=== PATIENT | male | born 1955 | race Caucasian/White ===

== ENCOUNTER → 2023-10-26 03:30 | Outpatient (CLI) | payer OTHER, SELFPAY ==
--- NOTE | 2023-10-26 10:28 | DI.RAD_ITS ---
Exam(s) XR FOOT LT COMPLETE EXAM: XR FOOT LT COMPLETE CLINICAL HISTORY: Left foot pain,m79.672. TECHNIQUE: 2D digital imaging was performed. Three views. COMPARISON: No exams were available for comparison FINDINGS: BONES: No acute fracture is present. No bony destructive lesion is seen. Small heel spurs. JOINTS: No dislocation present. Mild narrowing of for the 1st MTP joint. Spurring seen laterally. adjacent dorsal calcification. Moderate first metatarsal varus and hallux valgus. Degenerative jacobson ges also seen at the 1st metatarsal sesamoids. Hammertoe deformities. SOFT TISSUE: Vascular calcifications. IMPRESSION: Hallux valgus. Hammertoe deformities. DATA REPOSITORY: RADIATION DOSE DELIVERED:
== END ==
PROVIDERS: Visit Provider Podiatrist
DX: M20.12 Hallux valgus (acquired), left foot; M20.42 Other hammer toe(s) (acquired), left foot
CPT/HCPCS: 73630

== ENCOUNTER → 2023-12-19 12:56 | Outpatient (BNVA) | payer MEDICARE, OTHER, SELFPAY | PROVIDERS: Visit Provider Podiatrist | DX: M20.22 Hallux rigidus, left foot; M21.612 Bunion of left foot; M20.42 Other hammer toe(s) (acquired), left foot; G57.92 Unspecified mononeuropathy of left lower limb; L84 Corns and callosities; R09.89 Other specified symptoms and signs involving the circulatory and respiratory systems; M79.675 Pain in left toe(s); M79.672 Pain in left foot; R20.2 Paresthesia of skin; L85.1 Acquired keratosis [keratoderma] palmaris et plantaris | CPT/HCPCS: 11055; 20600; J0702; J1100 ==

== ENCOUNTER → 2024-01-23 13:48 | Outpatient (BNVA) | payer MEDICARE, OTHER, SELFPAY | PROVIDERS: Visit Provider Podiatrist | DX: M20.22 Hallux rigidus, left foot (principal); M21.612 Bunion of left foot; M20.42 Other hammer toe(s) (acquired), left foot; G57.92 Unspecified mononeuropathy of left lower limb; L84 Corns and callosities; L85.1 Acquired keratosis [keratoderma] palmaris et plantaris; M79.672 Pain in left foot; Z79.02 Long term (current) use of antithrombotics/antiplatelets; Z79.811 Long term (current) use of aromatase inhibitors | CPT/HCPCS: 11055; 20600; 99214; J0702; J1100 ==

== ENCOUNTER → 2024-04-02 10:28 | Outpatient (BNVA) | payer MEDICARE, OTHER, SELFPAY | PROVIDERS: PCP Student in an Organized Health Care Education/Training Program; Referring Provider Student in an Organized Health Care Education/Training Program; Visit Provider Podiatrist | DX: M20.22 Hallux rigidus, left foot (principal); M21.612 Bunion of left foot; M20.42 Other hammer toe(s) (acquired), left foot; G57.92 Unspecified mononeuropathy of left lower limb; L84 Corns and callosities; M79.672 Pain in left foot; L85.8 Other specified epidermal thickening; Z82.3 Family history of stroke | CPT/HCPCS: 11055; 20600; J0702; J1100 ==

== ENCOUNTER 2024-05-08 10:20 | Day surgery (SDC) | payer MEDICARE, SELFPAY ==
[2024-05-08] VITALS (16 sets, daily range): BP systolic 106–132; BP diastolic 62–85; PULSE 42–57; RESP 11–20; TEMP 36.2–36.8; O2SAT 97–100; BMI 32.6
[2024-05-08] MEDS: Lactated Ringers 1,000 ML 30 ML IV (10:52)
--- NOTE | 2024-05-08 11:03 | ANES.PREOP_ITS ---
General Info Date of Service Date Performed: 05/08/24 Height: 5 ft 8 in Weight: 97.5 kg Body Mass Index (BMI): 32.6 Surgical Procedure: Operation Date: 05/08/24 12:10 Proposed Procedure Side Surgeon p Arthroplasty Left Evi Michaelle, GEOVANI s Cheilectomy VS Arthrodesis Left Evi Braswell DPM Actual Procedure Side Surgeon p Arthroplasty Left Evi Braswell DPM s Cheilectomy VS Arthrodesis Left Evi Braswell DPM Meds Allergies and Home Medications Allergies Allergy/AdvReac Type Severity Reaction Status Date / Time bee venom protein (honey bee) Allergy Severe Anaphylaxis Verified 05/08/24 10:47 grass pollen Allergy Unknown Other (See Verified 05/08/24 10:47 Comment) mold Allergy Unknown Unknown Verified 05/08/24 10:47 grapefruit Allergy Severe throat Uncoded 05/08/24 10:47 swelling Home Medication ?Medication ?Instructions ?Recorded atorvastatin 20 mg tablet 20 mg PO QHS 10/26/23 lisinopril 5 mg tablet 5 mg PO DAILY #90 tabs 03/13/24 omeprazole 20 mg capsule,delayed 20 mg PO DAILY #90 caps 03/13/24 release oxycodone-acetaminophen 7.5 mg-325 1 tab PO Q8H 3 days #9 tabs 05/03/24 mg tablet (Percocet) Current Visit Medications: Current Medications Generic Name Dose Route Start Last Admin Trade Name Freq PRN Reason Stop Dose Admin Ringer's Solution 1,000 mls @ 30 mls/hr 05/08/24 06:00 05/08/24 10:52 IV 05/08/24 23:59 30 mls/hr INFUSION LEONEL Administration Cefazolin Sodium/Dextrose 2 gm in 50 mls @ 100 mls/hr 05/08/24 06:00 Ancef Duplex IVPB 05/08/24 23:59 PREOP LEONEL IV Miscellaneous Supplies 1 each 05/08/24 06:00 Iv Access IV 05/08/24 23:59 DIRECTED LEONEL Sodium Chloride 0 ml 05/08/24 06:00 Normal Saline Flush 10 Ml Syr IV 05/08/24 23:59 PRN PRN Sodium Chloride 0 ml 05/08/24 06:00 Normal Saline 10 Ml Vial IJ 05/08/24 16:00 DIRECTED PRN Sterile Water 0 ml 05/08/24 06:00 Water,Injection,Sterile 10 Ml Vial IJ 05/08/24 23:59 DIRECTED PRN PFSH Active Problems Active Problems: Problem Status Onset Code Post-op pain Acute G89.18 Malabsorption Acute K90.9 Long-term current use of proton pump inhibitor therapy Acute Z79.899 Esophagitis determined by endoscopy Acute K20.90 Outbursts of anger Acute R45.4 Nocturia more than twice per night Acute R35.1 Low vitamin B12 level Acute R79.89 Food allergy Acute Z91.018 Family history of prostate cancer in father Acute Z80.42 Family history of coronary artery disease Acute Z82.49 Bee sting allergy Acute Z91.030 GERD (gastroesophageal reflux disease) Chronic K21.9 Hypertension Chronic I10 Bunion, left foot Acute M21.612 Medical History Medical History Class 1 obesity Losing weight, summer 2023.. Marital stress History of COVID-19 in 2019 Difficulty controlling anger Corns and callosities Neuritis of left foot Hyperlipidemia Hammertoe of left foot Hallux rigidus, left foot Surgical History Surgical History (Updated 05/08/24 @ 10:49 by Amrita Muniz, RN) History of hip surgery Hx of shoulder surgery Per pt note, b/l shoulder surgeries.HE Hx of knee surgery Per pt note: Knees L/R 1981/1991?HE H/O laminectomy S/P laparoscopic hernia repair History of lumbar surgery x 2 (last being in 2022) Tobacco Smoking/Tobacco Use Status: Never Second hand exposure: Yes Alcohol Alcohol Intake: current Alcohol intake frequency: a few times a week Substance Use Substance use: Never Substance use type: does not use Vital Signs and Lab Results Vital Signs Most Recent Vital Signs in EMR: Most Recent Vital Signs Temp Pulse Resp BP Pulse Ox 36.8 C 57 L 17 132/85 98 05/08/24 10:43 05/08/24 10:43 05/08/24 10:43 05/08/24 10:43 05/08/24 10:43 Lab Results Blood Type / Crossmatch: 2 No Data to Display Complete Blood Count: 2 No Data to Display Complete Metabolic Panel: 2 No Data to Display Liver Function Panel: 2 No Data to Display Coagulation Panel: 2 No Data to Display Cardiac Panel: 2 No Data to Display Arterial Blood Gas: 2 No Data to Display Venous Blood Gas: 2 No Data to Display Pancreas Panel: 2 No Data to Display Thyroid Panel: 2 No Data to Display Infectious Disease: 2 No Data to Display Blood Cultures: 2 No Data to Display Toxicology Panel: 2 No Data to Display Anesthesia Assessment and Plan Anesthesia History Personal History: No History of Anesthesia Complications Family History: No Family History of Anesthesia Complications Exercise Tolerance Exercise Tolerance: Metabolic Equivalents>4 Pertinent Negatives Pertinent Negatives: No Major Cardiovascular Symptoms or Complaints, No Major Pulmonary Symptoms or Complaints and No History of CVA/TIA Cardiac & Pulmonary Exam Cardiac Exam: Normal S1/S2 Heart Sounds Pulmonary Exam: Clear Bilateral Breath Sounds Implantable Cardiac Device Does patient have a Pacemaker or an ICD?: No Airway Exam Known Difficult Airway: No Mallampati Class: 2 Mouth Opening: Normal (> 3cm) Thyromental Distance: Greater than 3 cm Neck Range of Motion: Full ROM Neck Circumference: Normal Teeth Condition: Normal Dentition Tooth Numberin 1. Indicates chipped teeth ASA Classification ASA Score: ASA 2 Emergency Case?: No NPO Status NPO Status: NPO Clears >2 hours, Solids >8 hours Anesthesia Plan Resuscitation Status: Full Code Anesthesia Technique: General Anesthesia Airway Planned: Endotracheal Tube Monitors Used: Standard Monitors
[2024-05-08] MEDS: ceFAZolin 2 GM/50 ML BAG IVPB (12:35)
[2024-05-08] MEDS: Lidocaine 1% Pres-Free 30 ML VIAL (12:55)
--- NOTE | 2024-05-08 14:34 | DI.RAD_ITS ---
Exam(s) XR FOOT LT LIMITED EXAM: XR FOOT LT LIMITED CLINICAL HISTORY: Hallux rigidus, Bunion, hammertoe, left foot. TECHNIQUE: 2D and realtime digital imaging was performed. COMPARISON: CR XR FOOT LT COMPLETE from 10/26/2023 FINDINGS: Please see procedure note for details. Fluoro time: 44seconds RADIATION DOSE DELIVERED: fran Garcia=0.34 mGy
[2024-05-08] MEDS: Bupivacaine 0.25% Pres-Free 30 ML VIAL (14:55)
--- NOTE | 2024-05-08 15:07 | W.PM.DSUDISC ---
Date of service: 05/08/24 Time of Service: 12:00 Discharge Plan Disposition Patient Disposition: Home Condition: Stable Discharge Details Attending Provider: Evi Braswell Primary Care Provider: Melvi Butler Home Meds and New Rx's Prescriptions: No Action atorvastatin 20 mg tablet 20 mg PO QHS Rx Instructions: dose unverified omeprazole 20 mg capsule,delayed release(DR/EC) 20 mg PO DAILY Qty: 90 1RF Rx Instructions: Continue 2' esophagitis. Pt will call for refills when needed. lisinopril 5 mg tablet 5 mg PO DAILY Qty: 90 3RF Rx Instructions: Hypertension; Kidney protection. PLEASE FILL oxycodone-acetaminophen [Percocet] 7.5-325 mg tablet 1 tab PO Q8H MDD 3 tabs per day 3 Days Qty: 9 0RF Patient Comments: picked up for surgery that was supposed to be 05/07 Discharge Instructions Additional Instructions: Please keep your dressings clean, dry and intact. Do not let the dressings get wet. Rest, ice and elevate. Keep your cam boot on. Patient to remain nonweightbearing to the left lower extremity. You may loosen the outer brown layer of dressing if you have pain to the left foot. Follow-up on Stand Alone Forms: Anesthesia Discharge Inst., Cristina Ren (DSU), Podiatry Instructions-DSU Equipment/Supplies: Walker Activity:: Elevate Remove Dressings/Wound Care:: Do Not Remove Shower/Bathe:: Cover Diet:: Normal Diet Discharge Orders Discharge Orders: Discharge Order (Routine); Ordered 05/08/24 Ordered By: Evi Braswell DS: Diagnosis Discharge Diagnosis (1) Bunion, left foot: Status: Acute (2) Hallux rigidus, left foot:
--- NOTE | 2024-05-08 15:09 | ROE_ITS ---
Date of service: 05/08/24 Time of Service: 12:00 Operative Note Operative Note DATE OF PROCEDURE: 05/08/24 PRE-OP DIAGNOSIS: Hallux rigidus left foot POST-OP DIAGNOSIS: same PROCEDURE: First metatarsophalangeal joint arthrodesis, left foot SURGEON: Evi Braswell ANESTHESIA TYPE: Local By Surgeon (20 mL 1% lidocaine plain preoperatively.) Refer to Anesthesia Record ESTIMATED BLOOD LOSS: 5 PATHOLOGY: none sent TOURNIQUET TIME: 90 COMPLICATIONS: None Patient was transported to: same day Patient's condition: stable Implants: DynaFORCE MTP plate 18 mm 0 degree dorsiflexion, left HIMAX 18 x 18 x 18 mm screw MotoBand nonlocking screw 2.0 mm x 22 mm MotoBAND polyaxial locking screws 3.4 mm x 16 mm- x3 Indications: Is a 69-year-old male patient with pain to the left first metatarsophalangeal joint as well as a large bunion deformity and asking for appointments. Patient has exhausted all conservative care at this time. I discussed the procedure in detail with the patient. I discussed all the risks, benefits and possible complications of the procedure including but not limited to pain, nerve pain, CRPS, bleeding, delayed wound, nonhealing, incisional problems, infection, infection to bone, delayed union, nonunion, malfunctioning however hardware failure, hardware irritation or allergy, need for further surgery or amputation, DVT, PE, stroke or SD, with anesthesia. No guarantees or warranties were made or implied. Consent form signed reviewed in chart. Medical clearance in chart. Imaging reviewed. No contraindications noted to the procedure. Findings: Large intra-articular osteophytes x 2. Cartilage loss. Procedure Description: The patient was brought to the operating room and placed on the operating table in the supine position. Following IV sedation local anesthesia was obtained utilizing 10mL % lidocaine plain. An ankle tourniquet was applied to the patient's left ankle. The foot was then scrubbed, prepped, and draped in the usual aseptic manner. The patient's left foot was then exsanguinated using and Esmarch and the tourniquet was then inflated. Attention was then directed to the dorsal aspect of the first metatarsal head of the left foot where an approximately 5cm linear longitudinal incision was made medial and parallel to the tendon of the extensor hallucis longus. The incision was deepened through the subcutaneous tissues using sharp and blunt dissection. Care was taken to identify and retract all vital neural and vascular structures. All bleeders were ligated and cauterized as necessary. Next, a linear longitudinal incision was made and a capsulotomy was performed over the dorsal aspect of the first metatarsal-phalangeal joint. The periosteal and capsular structures were then carefully dissected free and reflected me dially and laterally thus exposing the head of the first metatarsal. Utilizing a sagittal bone saw, the dorsal and medial prominence of the metatarsal head was resected and passed from the operative field. Utilizing a ronguer, the dosrsal, medial and lateral prominences were removed from the base of the proximal phalanx. Next,, a guide wire was placed centrally in the head of the 1st metatarsal. A size 18 reamer was used to reshape the metatarsal head and remove all cartilage. The guide wire was removed. The same was done to the base of the proximal phalanx with a guide wire placed centrally in the base. A size 18 reamer was used to reshape the base of the proximal phalanx and remove all cartilage. The guide wire was removed site was then flushed with copious amounts of sterile saline. Either side of the joint greater than fenestrated the joint surfaces. Next, the metatarsal head and base of the proximal phalanx were compressed together and held in place with a k-wire for temporary fixation. Intraoperative fluoroscopy was used to confirm fixation. Next, a 0 degree dorsiflexion, left Plate was placed over 1st MTPJ. An olive wire was placed in the distal medial hole to provide temporary fixation, followed by a 2nd olive wire placed in the lateral proximal hole. A hole was drilled through the first metatarsal as well as the proximal phalanx for a compression staple. The compression staple was then placed. The ankle tourniquet was then deflated since was 90 minutes. A locking screw was then placed distally in the proximal phalanx. Next, a screw was then placed in the metatarsal eccentrically for compression after removal of the proximal hallux wire. Next, a locking screw was placed distally in the proximal phalanx upon removal of the knowledge wire. Next, a K wire was removed. Next intraoperative images were obtained for positioning this was noted to be excellent. Excellent compression was noted across the metatarsophalangeal joint. The incision was flushed with copious amounts of normal saline. The periosteal and capsular structures were reaproximated using 3-0 Vicryl. Subcutaneous tissue was then closed with 4-0 Vicryl. Skin edges were reapproximated and coapted using 4-0 nylon. A postoperative injection consisting of 0.5% Marcaine plain by 20 mL were infiltrated across the incision site. Upon completion of the procedure the incision was dressed with Xeroform gauze, 4x4s, Kerlix, and an Rex wrap. The patient tolerated the procedure and anesthesia well and was transferred to same-day with all vital signs stable and vascular status intact to the left foot. Following a period of postoperative monitoring the patient will be discharged to home and given written instructions and prescriptions patient is to follow-up in the office on . He will be nonweightbearing to the left lower extremity.
--- NOTE | 2024-05-08 15:55 | W.ANESPOSTOP ---
Postoperative Evaluation Date, Time and Location Date Performed: 05/08/24 Time Performed: 13:36 Patient Location: PACU Vital Signs Most Recent Imported Vital Signs: Most Recent Vital Signs Temp Pulse Resp BP Pulse Ox 36.5 C 45 L 14 114/81 99 05/08/24 15:33 05/08/24 15:36 05/08/24 15:36 05/08/24 15:36 05/08/24 15:36 Pain Score Most Recent Pain Score: Most Recent Pain Score Pain Level 0 05/08/24 15:33 Assessment Mental Status: Arousable with meaningful communication Airway and Respiratory Function: Patent airway with normal (patient baseline) respiratory exam Cardiovascular Function: Hemodynamically Stable Hydration Status: Adequately Hydrated Nausea & Vomiting: No Nausea or Vomiting Pain: Pt. Denies Any Pain Peripheral Nerve Block: Patient did not receive a nerve block
--- NOTE | 2024-05-08 17:57 | IN_ITS ---
PT Notes Physical Therapy Day Surgery Initial Evaluation Date: 05/08/2024 Referring Doctor: Dr Braswell PT Orders: PT CONSULT: Status post surgery assessment for assistive device Precautions: Nonweightbearing left lower extremity with postop shoe for protection Patient Profile/Admitting Diagnosis: Patient is a 69-year-old man presenting status post elective left first MTP arthrodesis on 05/08/2024 under general anesthesia postop uncomplicated. Patient made nonweightbearing left lower extremity. PMHX: Esophagitis nocturia, low vitamin B12, GERD, hypertension, malabsorption. Social History/Home Situation: Patient resides in 1 level home with 1 step to enter through garage. Patient reports walk-in shower with bench. Patient reports she is independent ambulation ADLs, meal preparation, driving, shopping, finances. able to provide assistance as needed Equipment Owned/DME: Standard walker Subjective: Patient reports he practiced nonweightbearing with standard walker at home prior to surgery in preparation for NWB after. Objective: General Observation: Semireclined male on stretcher with sitting at bedside patient agreeable to participate Mental Status: Alert and oriented x 3 Pain: Patient denied pain left foot ROM: Right Upper Extremity: Within normal limits Left Upper Extremity: Within functional limits Right Lower Extremity: Within normal limits Left Lower Extremity: Hip and knee within normal limits ankle not tested Strength: Right Upper Extremity: 5/5 Left Upper Extremity: Shoulder 3+/5 elbow wrist hand within normal limits Right Lower Extremity: 5/5 Left Lower Extremity: Hip and knee within normal limits ankle not tested Sensation: Intact Bed Mobility/Transfers: Supine to sit independent Sit to stand supervision Stand to sit supervision Bed to chair contact-guard assist with standard walker Gait: Patient ambulated 25 feet maintaining nonweightbearing left lower extremity with use of standard walker and contact-guard Stairs: 1 step with standard walker contact-guard assist hopping up step backwards, hopping forward down step Balance: Static Sitting: Normal Dynamic Sitting: Good Static Standing: Fair Dynamic Standing: Fair minus Special Tests: [] Mobility Limitations Standardized Measure [] [facility] 6 clicks Basic Mobility Inpatient Short Form: [] Raw Score: 19 CMS Score: 41.77% Informed Consent/Education: Patient instructed in purpose of PT consult. Patient and instructed in ambulation and stair training while maintaining nonweightbearing status left lower extremity Assessment: Patient presents with clinical signs and symptoms consistent with current/admitting diagnoses that have resulted to mobility limitations, gait instability, generalized weakness, and impairment of motor control as demonstrated by the following impairment level findings: 1. Decreased strength to left lower extremity major muscle groups 2. Impaired standing balance 3. Limitation of joint range of motion in left foot 4. Impaired weightbearing status/nonweightbearing left foot Impairments are contributing to the following functional limitations: 1. Inability to safely ambulate without assistive device 2. Increase completion time for mobility ADL performance 3. Increased fall risk 4. Difficulty negotiating stairs without physical assistance and assistive device Patient is assessed as a moderate complexity based on the following: History: 69-year-old male with impairment level findings, functional limitations, and past medical history as indicated above Examination: Demonstrable impairment in strength, balance, and mobility level with underlying impairments and functional limitations as documented above Presentation: Evolving Decision Making: Moderate Goals: N/A. Plan of Care/Treatment Plan: N/A. DISCHARGE RECOMMENDATIONS: Home maintaining nonweightbearing until follow-up with Dr. Braswell TREATMENT CODE/TIME: 49144 x 20 minutes for 1 unit, 28375 x 15 minutes for 1 unit/[id number] Thank you for the opportunity to participate in the care of this patient. Elvia Fonseca PT Please sign an return this page within 30 days if you agree with the above POC. Thank you! Physician Signature Date [facility]
== END 2024-05-08 17:46 | disposition home or self-care (01) ==
LOC: SUR 10:23
PROVIDERS: PCP Student in an Organized Health Care Education/Training Program; Visit Provider Podiatrist
PROC: (CPT 28289; 2024-05-08 12:00)
PROC: (CPT 28750; 2024-05-08 12:00)
DX: M21.612 Bunion of left foot (principal); M20.22 Hallux rigidus, left foot; I10 Essential (primary) hypertension; K21.9 Gastro-esophageal reflux disease without esophagitis; E66.811 Obesity, class 1; E78.5 Hyperlipidemia, unspecified
CPT/HCPCS: 28750; C1889; 00123; 76000; 97162; 97530; 73620; J0131; J0665; J0690; J1885; J2250; J2704; J3010

== ENCOUNTER → 2024-05-10 13:06 | Outpatient (BNVA) | payer MEDICARE, SELFPAY | PROVIDERS: PCP Student in an Organized Health Care Education/Training Program; Visit Provider Podiatrist | DX: Z98.890 Other specified postprocedural states (principal); M21.612 Bunion of left foot; M20.22 Hallux rigidus, left foot; M20.42 Other hammer toe(s) (acquired), left foot; G57.92 Unspecified mononeuropathy of left lower limb; L84 Corns and callosities | CPT/HCPCS: 99024 ==

== ENCOUNTER 2024-05-17 03:00 | Outpatient (CLI) | payer MEDICARE, SELFPAY ==
--- NOTE | 2024-05-17 07:15 | DI.RAD_ITS ---
Exam(s) XR FOOT LT COMPLETE EXAM: XR FOOT LT COMPLETE CLINICAL HISTORY: post op,LT FOOT BUNION,m21.612. TECHNIQUE: 2D digital imaging was performed. Three images were obtained. AP, lateral and oblique vi ews were obtained. COMPARISON: CR XR FOOT LT COMPLETE from 10/26/2023 CR XR FOOT LT LIMITED from 05/08/2024 FINDINGS: BONES: There are stable post operative changes present. The patient is status post 1st MTP joint fus ion. No new fracture or dislocation. There is a small plantar calcaneal spur. There is an enthesoph yte at the posterior calcaneus. JOINTS: The joint spaces are well maintained. SOFT TISSUE: Vascular calcifications are present. IMPRESSION: Stable postoperative changes. DATA REPOSITORY: RADIATION DOSE DELIVERED:
== END 2024-05-17 03:20 ==
LOC: DI 03:00
PROVIDERS: PCP Student in an Organized Health Care Education/Training Program; Visit Provider Podiatrist
DX: M21.612 Bunion of left foot (principal); Z98.890 Other specified postprocedural states
CPT/HCPCS: 73630

== ENCOUNTER 2024-05-31 02:30 | Outpatient (CLI) | payer MEDICARE, SELFPAY ==
--- NOTE | 2024-05-31 07:00 | DI.RAD_ITS ---
Exam(s) XR FOOT LT COMPLETE EXAM: XR FOOT LT COMPLETE CLINICAL HISTORY: Postop PAIN,M21.612,G89.18,LT FOOT BUNION. TECHNIQUE: 2D digital imaging was performed. Three views. COMPARISON: CR XR FOOT LT COMPLETE from 05/17/2024 FINDINGS: BONES: Status post fusion at the 1st MTP joint with hardware in place. No change in alignment. No v isible abnormal bony lucencies. No acute fracture is present. No bony destructive lesion is seen. Small heel spurs again noted. JOINTS: No dislocation present. SOFT TISSUE: Mild swelling around the 1st MTP joint. Vascular calcifications. IMPRESSION: Stable postoperative appearance. DATA REPOSITORY: RADIATION DOSE DELIVERED:
== END 2024-05-31 02:50 ==
LOC: DI 02:30
PROVIDERS: PCP Student in an Organized Health Care Education/Training Program; Visit Provider Podiatrist
DX: M21.612 Bunion of left foot (principal); G89.18 Other acute postprocedural pain
CPT/HCPCS: 73630

== ENCOUNTER 2024-06-14 02:17 | Outpatient (CLI) | payer MEDICARE, SELFPAY ==
--- NOTE | 2024-06-14 08:38 | DI.RAD_ITS ---
Exam(s) XR FOOT LT COMPLETE EXAM: XR FOOT LT COMPLETE CLINICAL HISTORY: post-op pain,G89.18. TECHNIQUE: 2D digital imaging was performed. Three images were obtained. AP, lateral and oblique vi ews were obtained. COMPARISON: CR XR FOOT LT COMPLETE from 05/31/2024 FINDINGS: BONES: There are stable post operative changes of a 1st MTP joint fusion present. No new fracture or dislocation. The orthopedic hardware is stable. There is an enthesophyte at the posterior calcaneus . There is a small plantar calcaneal spur. JOINTS: The joint spaces are well maintained. The joint spaces are well maintained. SOFT TISSUE: Atherosclerotic calcification is present. There is soft tissue swelling of the forefoot . No soft tissue gas is present. IMPRESSION: Stable postoperative changes. DATA REPOSITORY: RADIATION DOSE DELIVERED:
== END 2024-06-14 02:37 ==
LOC: DI 02:17
PROVIDERS: PCP Student in an Organized Health Care Education/Training Program; Visit Provider Podiatrist
DX: G89.18 Other acute postprocedural pain (principal)
CPT/HCPCS: 73630

== ENCOUNTER 2024-06-28 01:28 | Outpatient (CLI) | payer MEDICARE, SELFPAY ==
--- NOTE | 2024-06-28 10:00 | DI.RAD_ITS ---
Exam(s) XR FOOT LT COMPLETE EXAM: XR FOOT LT COMPLETE CLINICAL HISTORY: post op M21.612 Bunion of LT foot. TECHNIQUE: 2D digital imaging was performed of the left foot. Three images were obtained. AP, obli que and lateral views were obtained. COMPARISON: CR XR FOOT LT COMPLETE from 06/14/2024 FINDINGS: BONES: No acute fracture is present. No bony destructive lesion is seen. There is an enthesophyte at the posterior calcaneus. There is a small plantar calcaneal spur. JOINTS: No dislocation present. There again seen postsurgical changes of a fusion of the 1st MTP join t. The joint space is unchanged. SOFT TISSUE: Normal. IMPRESSION: Stable postsurgical changes of a 1st MTP joint fusion. DATA REPOSITORY: RADIATION DOSE DELIVERED:
== END 2024-06-28 01:48 ==
LOC: DI 01:29
PROVIDERS: PCP Student in an Organized Health Care Education/Training Program; Visit Provider Podiatrist
DX: M21.612 Bunion of left foot (principal)
CPT/HCPCS: 73630

== ENCOUNTER 2024-07-19 12:00 | Outpatient (CLI) | payer MEDICARE, SELFPAY ==
[2024-07-19 11:31] LABS: HCT 45.3 % (40.0-50.0); HGB 15.2 g/dL (13.5-17.5); MCH 31.1 pg (27.0-33.0); MCHC 33.6 % (32.0-36.0); MCV 93 fL (80-95); MPV 10.7 fL (8.0-11.0); Platelet Count 242 10^3/uL (130-400); RBC 4.89 10^6/uL (4.36-5.78); RDW 12.5 % (11.8-14.1); RDW-SD 42.9 fL; WBC 5.03 10^3/uL (4.4-10.8)
--- OUTSIDE RECORDS SUMMARY | 2024-07-19 12:02 | XMS_ITS | Clinical Summary ---
Author Organization [facility] Address [facility] [place] [address] Care Team Providers Care Quality Control Scientist Name Role Phone Unavailable Primary Care Provider Unavailabl e Social History Tobacco Use Types Packs/Day Years Used Date Smoking Tobacco: Never Assessed Sex and Gender Information Value Date Recorded Sex Assigned at Not on file Gender Identity Not on file Sexual Orientation Not on file Plan of Treatment Upcoming Encounters Date Type Department Care Team (Late st Contact Info) Description 01/24/2025 2:30 PM EDT Office Visit Dermatology at [facility] [address] [place] [address] Donna Taylor MD [facility] [address] Health Maintenance Due Date Last Done Comments CT Colonography 1954 Colonoscopy 1954 Colorectal Cancer Screening 1954 FIT DNA 1954 FIT 1954 Sigmoidoscopy (10 year) with FIT yearly 1954 Sigmoidoscopy 1954 Hepatitis C Screening 1972 Lipid Screening 1972 Tetanus/Diphtheria/Pertussis Vaccines (1 - Tdap) 04/12 Pneumoccocal Vaccine: 65+ (1 of 1 - PCV) 2004 Zoster vaccine (1 of 2) 2004 Advance Directive 2009 Covid-19 Vaccine ( - season) 2024 Influenza (Flu) vaccine (1 o f 1 - Influenza standard series) 03/11/2024
[2024-07-19 12:22] LABS: ALT 24 U/L (16-63); AST 19 U/L (15-37); Albumin 4.1 g/dL (3.4-5.0); Alkaline Phosphatase 84 U/L (46-116); Anion Gap 4.9 mmol/L (3-11); BUN 17 mg/dL (7-18); Bilirubin, Total 0.78 mg/dL (0.2-1.0); CO2 31.1 mmol/L (21.0-32.0); CREATININE 1.1 mg/dL (0.70-1.30); Calcium 9.7 mg/dL (8.5-10.1); Calculated LDL 88 mg/dL (<100); Chloride 107 mmol/L (98-107); Cholesterol 173 mg/dL (<200); Estimated GFR 72.22 (mL/min/1.73m2); Glucose 94 mg/dL (74-106); HDL Cholesterol 69 mg/dL (40-60); Potassium 4.4 mmol/L (3.5-5.1); Sodium 143 mmol/L (136-145); Total Protein 7.5 g/dL (6.4-8.2); Triglyceride 84 mg/dL (<150); Vitamin B12 245 pg/mL (193-986); Vitamin D 25 Total 45.5 ng/mL (30-100)
== END 2024-07-19 12:01 | disposition home or self-care (01) ==
LOC: LBO 12:01
PROVIDERS: PCP Nurse Practitioner; Visit Provider Student in an Organized Health Care Education/Training Program
DX: I10 Essential (primary) hypertension (principal); Z82.49 Family history of ischemic heart disease and other diseases of the circulatory system; R79.89 Other specified abnormal findings of blood chemistry; K21.9 Gastro-esophageal reflux disease without esophagitis; Z91.89 Other specified personal risk factors, not elsewhere classified; K90.9 Intestinal malabsorption, unspecified; Z13.220 Encounter for screening for lipoid disorders
CPT/HCPCS: 36415; 80053; 80061; 82306; 85027; 82607

== ENCOUNTER 2024-07-27 14:19 | Outpatient (CLI) | payer MEDICARE, SELFPAY ==
[2024-07-30 09:48] LABS: PSA, Screening 0.6 ng/mL (<=6.5)
== END 2024-07-27 14:20 | disposition home or self-care (01) ==
LOC: LBO 14:19
PROVIDERS: PCP Nurse Practitioner; Visit Provider Nurse Practitioner
DX: Z12.5 Encounter for screening for malignant neoplasm of prostate (principal); Z80.42 Family history of malignant neoplasm of prostate
CPT/HCPCS: 36415; 84153

== ENCOUNTER 2024-08-07 02:29 | Outpatient (CLI) | payer MEDICARE, SELFPAY ==
--- NOTE | 2024-08-07 10:00 | DI.RAD_ITS ---
Exam(s) XR FOOT LT COMPLETE EXAM: XR FOOT LT COMPLETE CLINICAL HISTORY: Postop PAIN,G89.18. TECHNIQUE: 2D digital imaging was performed of the left foot. Three images were obtained. AP, obli que and lateral views were obtained. COMPARISON: CR XR FOOT LT COMPLETE from 06/28/2024 FINDINGS: BONES: No acute fracture is present. No bony destructive lesion is seen. There is an enthesophyte at the posterior calcaneus. There is a small plantar calcaneal spur. JOINTS: No dislocation present. Stable postsurgical changes of a 1st MTP joint fusion. There is stab le mild degenerative changes seen in the foot. SOFT TISSUE: There is mild soft tissue swelling of the foot. Vascular calcifications are present. IMPRESSION: Stable postsurgical changes at the 1st MTP joint. DATA REPOSITORY: RADIATION DOSE DELIVERED:
== END 2024-08-07 02:49 ==
LOC: DI 02:29
PROVIDERS: PCP Nurse Practitioner; Visit Provider Podiatrist
DX: G89.18 Other acute postprocedural pain (principal)
CPT/HCPCS: 72052; 73630

== ENCOUNTER 2024-08-07 02:29 | Outpatient (CLI) | payer MEDICARE, SELFPAY ==
--- NOTE | 2024-08-07 07:00 | DI.RAD_ITS ---
Exam(s) XR CERVICAL SP COMP W FLEX/EXT EXAM: XR CERVICAL SP COMP W FLEX/EXT CLINICAL HISTORY: injury 18mos ago, was told fx vertebra,NECK PAIN, M54.2. TECHNIQUE: 2D digital imaging was performed. Eight images were obtained. AP, odontoid, lateral, flex ion, extension and bilateral oblique images were obtained. COMPARISON: No exams were available for comparison FINDINGS: The odontoid is intact. The lateral masses are well aligned. There is 2 mm anterolisthesis of C4 on C5. There is disc space narrowing at C5-C6 and C6-C7. Endplate osteophytes are seen throughout the c ervical spine. No acute fracture or subluxation is present. On the right there is neural foraminal n arrowing seen at C5-6 and C6-C7. On the left there is neural foraminal narrowing seen at C4-5, C6-7 and C5-C6. Degenerative changes are seen in the facets bilaterally but are most prominent on the lef t at C4-C5. There is no significant change with flexion or extension. The cervical thoracic junctio n is well maintained. The prevertebral soft tissues are unremarkable. Lung apices are clear. IMPRESSION: Moderate degenerative changes seen in the cervical spine. DATA REPOSITORY: RADIATION DOSE DELIVERED:
== END 2024-08-07 02:49 ==
LOC: DI 02:29
PROVIDERS: PCP Nurse Practitioner; Visit Provider Nurse Practitioner
DX: Z98.890 Other specified postprocedural states; M79.672 Pain in left foot; M48.02 Spinal stenosis, cervical region; M99.63 Osseous and subluxation stenosis of intervertebral foramina of lumbar region
CPT/HCPCS: 72052

== ENCOUNTER 2024-09-12 02:33 | Outpatient (CLI) | payer MEDICARE, SELFPAY ==
--- NOTE | 2024-09-12 10:15 | DI.CT_ITS ---
Exam(s) CT LOWER EXTREMITY LT WO EXAM: CT LOWER EXTREMITY LT WO CLINICAL HISTORY: ?Fused,? How much,post op pain,lt,hallux rigidus,m79.672,m20.22,g89.18. TECHNIQUE: Imaging Protocol: Axial computed tomography images with coronal and sagittal reformatted images were created and reviewed. CONTRAST MATERIAL: Intravenous: Non COMPARISON: No exams were available for comparison FINDINGS: OSSEOUS: There are no fractures. No diastasis of the Lisfranc joint. There is dorsal hardware great toe metatarsophalangeal joint. There is no complete trabecular contin uity but there does appear to be partial fusion of the dorsal/mid aspect of this articulation. The m ost inferior aspect is incompletely. There is no hardware loosening. No radiographic evidence of os teomyelitis. The most proximal and distal screws appear to extend through the inferior cortices of t he great toe metatarsal and and proximal phalanx. The interphalangeal joint of the great toe appears unremarkable. Distal phalanx appears unremarkable . The proximal aspect of the great toe metatarsal appears unremarkable as does the 1st tarsometatars al joint. IMPRESSION: Partial fusion of the great toe MTP joint as described above. RADIATION DOSE DELIVERED: 82.78mGy.cm Total DLP DATA REPOSITORY: All CT scans at this facility are submitted to the National Radiology Data Registry (NRDR) Dose Index Registry (DIR) with the [employer] (ACR). RADIATION OPTIMIZATION: All CT scans at this facility use at least one of these dose optimization te chniques: automated exposure control; mA and/or kV adjustment per patient size (includes targeted exa ms where dose is matched to clinical indication); or iterative reconstruction.
== END 2024-09-12 02:53 ==
LOC: DI 02:33
PROVIDERS: PCP Nurse Practitioner; Visit Provider Podiatrist
DX: M20.22 Hallux rigidus, left foot; G89.18 Other acute postprocedural pain
CPT/HCPCS: 73700

== ENCOUNTER → 2024-10-01 10:06 | Outpatient (BNVA) | payer MEDICARE, SELFPAY | PROVIDERS: PCP Nurse Practitioner; Referring Provider Nurse Practitioner; Visit Provider Student in an Organized Health Care Education/Training Program | DX: Z12.11 Encounter for screening for malignant neoplasm of colon (principal) ==

== ENCOUNTER 2024-10-16 06:52 | Day surgery (SDC) | payer MEDICARE, SELFPAY ==
[2024-10-16 07:03] VITALS: BP 122/91; PULSE 61; RESP 16; TEMP 36.1; O2SAT 98
[2024-10-16] MEDS: Lactated Ringers 1,000 ML 80 ML IV (07:22)
--- NOTE | 2024-10-16 07:47 | ANES.PREOP_ITS ---
General Info Date of Service Date Performed: 10/16/24 Height: 5 ft 8 in Weight: 97.9 kg Body Mass Index (BMI): 32.8 Surgical Procedure: Operation Date: 10/16/24 08:20 Proposed Procedure Side Surgeon p Colonoscopy Riaz Abdalla MD Meds Allergies and Home Medications Allergies Allergy/AdvReac Type Severity Reaction Status Date / Time bee venom protein (honey bee) Allergy Severe Anaphylaxis Verified 10/16/24 07:16 grapefruit Allergy Severe throat Verified 10/16/24 07:16 swelling grass pollen Allergy Unknown Other (See Verified 10/16/24 07:16 Comment) Home Medication ?Medication ?Instructions ?Recorded lisinopril 5 mg tablet 5 mg PO DAILY #90 tabs 03/13/24 omeprazole 20 mg capsule,delayed 20 mg PO DAILY #90 caps 03/13/24 release atorvastatin 20 mg tablet 20 mg PO QHS #90 tabs 07/25/24 mecobalamin (vitamin B12) 1,000 1,000 mcg PO DAILY 08/07/24 mcg chewable tablet bisacodyl 5 mg tablet,delayed 5 mg PO ONCE colonscopy bowel prep 10/01/24 release (Dulcolax (bisacodyl)) #4 tabs lactobacillus combination no.4 3 3,000 mmu cells PO DAILY 10/01/24 billion cell capsule (Probiotic) multivitamin 1 tab PO DAILY 10/01/24 polyethylene glycol 3350 17 238 g PO ONCE colonoscopy prep 10/01/24 gram/dose oral powder #238 grams Current Visit Medications: Current Medications Generic Name Dose Route Start Last Admin Trade Name Freq PRN Reason Stop Dose Admin Ringer's Solution 1,000 mls @ 80 mls/hr 10/16/24 06:00 10/16/24 07:22 IV 10/16/24 23:59 80 mls/hr INFUSION LEONEL Administration IV Miscellaneous Supplies 1 each 10/16/24 06:00 Iv Access IV 10/16/24 23:59 DIRECTED LEONEL Sodium Chloride 0 ml 10/16/24 06:00 Normal Saline Flush 10 Ml Syr IV 10/16/24 23:59 PRN PRN Sodium Chloride 0 ml 10/16/24 06:00 Normal Saline 10 Ml Vial IJ 10/16/24 23:59 DIRECTED PRN Sterile Water 0 ml 10/16/24 06:00 Water,Injection,Sterile 10 Ml Vial IJ 10/16/24 23:59 DIRECTED PRN PFSH Active Problems Active Problems: Problem Status Onset Code Snoring Acute R06.83 Change in voice Acute R49.9 Bunion, right foot Acute M21.611 Post-op pain Acute G89.18 Malabsorption Acute K90.9 Long-term current use of proton pump inhibitor therapy Acute Z79.899 Esophagitis determined by endoscopy Acute K20.90 Outbursts of anger Acute R45.4 Nocturia more than twice per night Acute R35.1 Low vitamin B12 level Acute R79.89 Food allergy Acute Z91.018 Family history of prostate cancer in father Acute Z80.42 Family history of coronary artery disease Acute Z82.49 Bee sting allergy Acute Z91.030 GERD (gastroesophageal reflux disease) Chronic K21.9 Hypertension Chronic I10 Bunion, left foot Acute M21.612 Medical History Medical History Pilonidal cyst Class 1 obesity Losing weight, summer 2023.. Marital stress History of COVID-19 in 2019 Difficulty controlling anger Corns and callosities Neuritis of left foot Hyperlipidemia Hammertoe of left foot Hallux rigidus, left foot Surgical History Surgical History Hx of colonoscopy 10/08/21[place]; Pre-op dx: personal hx of polyps. Postop dx: Diverticulosis Hemorrhoids. F/u recommended in 7 yrs. History of hip surgery Hx of shoulder surgery Per pt note, b/l shoulder surgeries.HE Hx of knee surgery Per pt note: Knees L/R 1981/1991?HE H/O laminectomy S/P laparoscopic hernia repair History of lumbar surgery x 2 (last being in 2022) Tobacco Smoking/Tobacco Use Status: Never Second hand exposure: Yes Alcohol Alcohol Intake: current Alcohol intake frequency: a few times a week Substance Use Substance use: Never Substance use type: does not use Vital Signs and Lab Results Vital Signs Most Recent Vital Signs in EMR: Most Recent Vital Signs Temp Pulse Resp BP Pulse Ox 36.1 C L 61 16 122/91 H 98 10/16/24 07:03 10/16/24 07:03 10/16/24 07:03 10/16/24 07:03 10/16/24 07:03 Lab Results Blood Type / Crossmatch: No Data to Display Complete Blood Count: No Data to Display Complete Metabolic Panel: No Data to Display Liver Function Panel: No Data to Display Coagulation Panel: No Data to Display Cardiac Panel: No Data to Display Arterial Blood Gas: No Data to Display Venous Blood Gas: No Data to Display Pancreas Panel: No Data to Display Thyroid Panel: No Data to Display Infectious Disease: No Data to Display Blood Cultures: No Data to Display Toxicology Panel: No Data to Display Anesthesia Assessment and Plan Anesthesia History Personal History: No History of Anesthesia Complications Family History: No Family History of Anesthesia Complications Exercise Tolerance Exercise Tolerance: Metabolic Equivalents>4 Pertinent Negatives Pertinent Negatives: No Symptoms of GERD Cardiac & Pulmonary Exam Cardiac Exam: Normal S1/S2 Heart Sounds Pulmonary Exam: Clear Bilateral Breath Sounds Implantable Cardiac Device Does patient have a Pacemaker or an ICD?: No Airway Exam Known Difficult Airway: No Mallampati Class: 2 Mouth Opening: Normal (> 3cm) Thyromental Distance: Greater than 3 cm Neck Range of Motion: Full ROM Neck Circumference: Normal Teeth Condition: Normal Dentition ASA Classification ASA Score: ASA 2 Emergency Case?: No NPO Status NPO Status: NPO Clears >2 hours, Solids >8 hours Anesthesia Plan Resuscitation Status: Full Code Anesthesia Technique: General Anesthesia Airway Planned: Natural Airway Monitors Used: Standard Monitors
[2024-10-16 07:50] VITALS: BMI 32.8
[2024-10-16 08:44] VITALS: BP 139/77; PULSE 49; RESP 16; TEMP 36.6; O2SAT 97
--- NOTE | 2024-10-16 08:44 | W.COLOREPORT ---
Date of service: 10/16/24 Time of Service: 08:47 Colonoscopy Report Procedure Description: PROCEDURES PERFORMED: 1. Colonoscopy PREOPERATIVE DIAGNOSIS: Surveillance colonoscopy POSTOPERATIVE DIAGNOSIS: Mild pandiverticulosis, moderate sigmoid diverticulosis, grade 1 internal hemorrhoids, fistula en ano SURGEON: Grzegorz Abdalla MD INDICATION FOR PROCEDURE: the patient is a 69-year-old man without any symptoms. No significant history. He reports a perianal cyst that occasionally spontaneously drains for more than a decade. FINDINGS: Normal terminal ileum. Minimal/mild, scattered diverticular changes throughout the entire colon. Pretty significant diverticular disease in the sigmoid colon. No polyps. No inflammation. Grade 1 internal hemorrhoids are present. There is a posterior?midline fistula en ano. SURVEILLANCE interval/FOLLOW-UP: 10 years for colorectal cancer surveillance/screening. He can follow-up at any point to discuss fistula surgery. SPECIMENS: None EBL: Minimal COMPLICATIONS: None QUALITY of prep: Excellent Procedure in detail: The patient gave written consent and was in agreement with the indications, the potential risks as well as the benefits of the procedure. They were taken to the endoscopy suite and laid in the left lateral decubitus position. A timeout was performed and anesthesia was administered which was tolerated well. I started the procedure. Digital rectal and visual examination was performed and grossly within normal limits. A well-lubricated flexible colonoscope was then introduced and passed without any notable difficulty all the way to the cecum identified by the ileocecal valve and the appendiceal orifice. The terminal ileum was intubated and looked normal. The scope was then slowly withdrawn with the above-noted findings. The patient tolerated the procedure well and was taken to the PACU in hemodynamically stable condition.
--- NOTE | 2024-10-16 08:50 | W.PM.DSUDISC ---
Date of service: 10/16/24 Discharge Plan Disposition Patient Disposition: Home Condition: Good Discharge Details Attending Provider: Riaz Abdalla Primary Care Provider: Benita Jeronimo Home Meds and New Rx's Prescriptions: No Action mecobalamin (vitamin B12) 1,000 mcg tablet,chewable 1,000 mcg PO DAILY multivitamin Tablet 1 tab PO DAILY Probiotic 3 billion cell capsule 3,000 mmu cells PO DAILY Rx Instructions: administer with a meal polyethylene glycol 3350 17 gram/dose powder 238 g PO ONCE Qty: 238 0RF Rx Instructions: take per colonoscopy instructions bisacodyl [Dulcolax (bisacodyl)] 5 mg tablet,delayed release (DR/EC) 5 mg PO ONCE Qty: 4 0RF Rx Instructions: take per colonoscopy instructions omeprazole 20 mg capsule,delayed release(DR/EC) 20 mg PO DAILY Qty: 90 1RF Rx Instructions: Continue 2' esophagitis. Pt will call for refills when needed. lisinopril 5 mg tablet 5 mg PO DAILY Qty: 90 3RF Rx Instructions: Hypertension; Kidney protection. PLEASE FILL atorvastatin 20 mg tablet 20 mg PO QHS Qty: 90 3RF Rx Instructions: dose unverified Discharge Instructions Additional Instructions: FINDINGS: There was no cancer and no polyps. This is great news. You do have mild diverticulosis which is extremely common, benign and nothing needs to be done about it. You do NOT have a cyst around your bottom but rather a fistula. These can be surgically repaired if and when you wish. Stand Alone Forms: Anesthesia Discharge Inst., Colonoscopy Post Instructions, Cristina Ren (DSU) Activity:: Activity as Tolerated Diet:: As Tolerated
[2024-10-16 09:11] VITALS: BP 141/96; PULSE 46; RESP 16; TEMP 36.4; O2SAT 99
--- NOTE | 2024-10-16 09:25 | W.ANESPOSTOP ---
Postoperative Evaluation Date, Time and Location Date Performed: 10/16/24 Time Performed: 08:51 Patient Location: Day Surgery Unit Vital Signs Most Recent Imported Vital Signs: Most Recent Vital Signs Temp Pulse Resp BP Pulse Ox 36.4 C L 46 L 16 141/96 H 99 10/16/24 09:11 10/16/24 09:11 10/16/24 09:11 10/16/24 09:11 10/16/24 09:11 Pain Score Most Recent Pain Score: Most Recent Pain Score Pain Level 0 10/16/24 09:11 Assessment Mental Status: Arousable with meaningful communication Airway and Respiratory Function: Patent airway with normal (patient baseline) respiratory exam Cardiovascular Function: Hemodynamically Stable Hydration Status: Adequately Hydrated Nausea & Vomiting: No Nausea or Vomiting Pain: Pt. Denies Any Pain Peripheral Nerve Block: Patient did not receive a nerve block
== END 2024-10-16 09:53 | disposition home or self-care (01) ==
LOC: SUR 06:53
PROVIDERS: PCP Nurse Practitioner; Visit Provider Student in an Organized Health Care Education/Training Program
PROC: 0DJD8ZZ Inspection of Lower Intestinal Tract, Via Natural or Artificial Opening Endoscopic (ICD-10-PCS; CPT 45378; principal; 2024-10-16 08:15)
DX: Z12.11 Encounter for screening for malignant neoplasm of colon (principal); K57.30 Diverticulosis of large intestine without perforation or abscess without bleeding; K64.0 First degree hemorrhoids; K60.30 Anal fistula, unspecified
CPT/HCPCS: G0121; J2003; J2704

== ENCOUNTER 2024-10-17 10:40 | Outpatient (CLI) | payer MEDICARE, SELFPAY ==
--- NOTE | 2024-10-17 10:15 | DI.RAD_ITS ---
Exam(s) XR FOOT LT COMPLETE EXAM: XR FOOT LT COMPLETE CLINICAL HISTORY: Lt foot bunion, M21.612, fused?. TECHNIQUE: 2D digital imaging was performed. Three images were obtained. AP, lateral and oblique vi ews were obtained. COMPARISON: CR XR FOOT LT COMPLETE from 08/07/2024 FINDINGS: BONES: There are stable post operative changes of a 1st MTP joint fusion present. The joint space ap pears to be fused. No new fracture or dislocation. There is a small enthesophyte at the posterior ca lcaneus. There is a small plantar calcaneal spur. JOINTS: The joint spaces are otherwise well maintained. SOFT TISSUE: Normal. IMPRESSION: Stable postoperative changes. DATA REPOSITORY: RADIATION DOSE DELIVERED:
== END 2024-10-17 11:00 ==
PROVIDERS: PCP Nurse Practitioner; Visit Provider Podiatrist
DX: M21.612 Bunion of left foot (principal); Z98.890 Other specified postprocedural states; M21.611 Bunion of right foot; G89.18 Other acute postprocedural pain; M20.22 Hallux rigidus, left foot; M20.42 Other hammer toe(s) (acquired), left foot; G57.92 Unspecified mononeuropathy of left lower limb; L84 Corns and callosities
CPT/HCPCS: 99214; 73630

== ENCOUNTER 2024-11-07 12:29 | Outpatient (CLI) | payer MEDICARE, SELFPAY ==
--- NOTE | 2024-11-07 13:00 | DI.US_ITS ---
Exam(s) US LOWER EXTREMITY VENOUS RT EXAM: US LOWER EXTREMITY VENOUS RT CLINICAL HISTORY: swollen right leg, M79.89. TECHNIQUE: Lower extremity venous ultrasound performed using grayscale, color-flow, and spectral Do ppler analysis. COMPARISON: No exams were available for comparison FINDINGS: The common femoral, femoral and popliteal veins demonstrate normal compressibility, augmentation, and color Doppler. The posterior tibial and peroneal veins are patent. No saphenous vein thrombosis or other superficial venous thrombosis is seen. No hematoma or Ace's cyst is seen. IMPRESSION: Negative lower extremity ultrasound. No evidence of DVT. DATA REPOSITORY:
== END 2024-11-07 12:49 ==
LOC: DI 12:29
PROVIDERS: PCP Nurse Practitioner; Visit Provider Nurse Practitioner
DX: M79.89 Other specified soft tissue disorders (principal)
CPT/HCPCS: 93971

== ENCOUNTER → 2025-01-02 10:53 | Outpatient (BNVA) | payer MEDICARE, SELFPAY | PROVIDERS: PCP Nurse Practitioner; Referring Provider Nurse Practitioner; Visit Provider Podiatrist | DX: M21.611 Bunion of right foot (principal); M21.612 Bunion of left foot; M20.22 Hallux rigidus, left foot; M20.42 Other hammer toe(s) (acquired), left foot; G57.92 Unspecified mononeuropathy of left lower limb; L84 Corns and callosities; G89.18 Other acute postprocedural pain; Z98.890 Other specified postprocedural states | CPT/HCPCS: 99213 ==

== ENCOUNTER → 2025-01-23 10:46 | Outpatient (BNVA) | payer MEDICARE, SELFPAY | PROVIDERS: PCP Nurse Practitioner; Referring Provider Nurse Practitioner; Visit Provider Surgery | DX: K60.30 Anal fistula, unspecified (principal) | CPT/HCPCS: 99213 ==

== ENCOUNTER 2025-03-06 01:04 | Outpatient (CLI) | payer MEDICARE, SELFPAY ==
--- NOTE | 2025-03-06 06:00 | DI.CT_ITS ---
Exam(s) CT HEAD WO EXAM: CT HEAD WO CLINICAL HISTORY: ? intracranial bleed,HEAD TRAUMA,S09.90XA. TECHNIQUE: Imaging Protocol: Axial computed tomography images with coronal and sagittal reformatted images were created and reviewed COMPARISON: No exams were available for comparison FINDINGS: Ventricles and Extra axial spaces: Normal in size and morphology for the patient's age. Hemorrhage: None. Cerebral parenchyma: There is no evidence of an acute territorial infarct. No acute mass effect is identified. Midline shift: None. Brainstem/Cerebellum: Normal. Calvarium: Normal. Visualized Paranasal sinuses/Mastoids: Clear. Soft Tissues: Unremarkable. IMPRESSION: No acute intracranial process. RADIATION DOSE DELIVERED: 892.52mGy.cm Total DLP DATA REPOSITORY: All CT scans at this facility are submitted to the National Radiology Data Registry (NRDR) Dose Index Registry (DIR) with the [employer] (ACR). RADIATION OPTIMIZATION: All CT scans at this facility use at least one of these dose optimization techniques: automated exposure control; mA and/or kV adjustment per patient size (includes targeted exams where dose is matched to clinical indication); or iterative reconstruction.
== END 2025-03-06 01:24 ==
LOC: DI 01:04
PROVIDERS: PCP Nurse Practitioner; Visit Provider Family Medicine
DX: S09.90XA Unspecified injury of head, initial encounter (principal); X58.XXXA Exposure to other specified factors, initial encounter
CPT/HCPCS: 70450

== ENCOUNTER 2025-05-06 10:33 | Outpatient (CLI) | payer MEDICARE, SELFPAY ==
[2025-05-06 11:55] LABS: TSH (W/Ref FT4) 1.07 uIU/mL (0.36-3.74)
== END 2025-05-06 10:34 | disposition home or self-care (01) ==
LOC: LBO 10:33
DX: R61 Generalized hyperhidrosis (principal); R23.2 Flushing
CPT/HCPCS: 36415; 84443

== ENCOUNTER → 2025-05-08 10:49 | Outpatient (BNVA) | payer MEDICARE, SELFPAY | PROVIDERS: Visit Provider Podiatrist | DX: Z98.890 Other specified postprocedural states (principal); G89.18 Other acute postprocedural pain; M21.611 Bunion of right foot; M21.612 Bunion of left foot; M20.22 Hallux rigidus, left foot; M20.42 Other hammer toe(s) (acquired), left foot; G57.92 Unspecified mononeuropathy of left lower limb; L84 Corns and callosities | CPT/HCPCS: 28010 ==

== ENCOUNTER → 2025-05-23 12:48 | Outpatient (BNVA) | payer MEDICARE, SELFPAY | PROVIDERS: Visit Provider Podiatrist | DX: Z98.890 Other specified postprocedural states (principal); G89.18 Other acute postprocedural pain; M21.611 Bunion of right foot; M21.612 Bunion of left foot; M20.22 Hallux rigidus, left foot; M20.42 Other hammer toe(s) (acquired), left foot; G57.92 Unspecified mononeuropathy of left lower limb; L84 Corns and callosities | CPT/HCPCS: 99213 ==

== ENCOUNTER → 2025-05-28 09:32 | Outpatient (BNVA) | payer MEDICARE, SELFPAY | PROVIDERS: Visit Provider Student in an Organized Health Care Education/Training Program | DX: M12.812 Other specific arthropathies, not elsewhere classified, left shoulder (principal) | CPT/HCPCS: 99214 ==

== ENCOUNTER → 2025-06-26 13:46 | Outpatient (CLI) | payer MEDICARE, SELFPAY ==
--- NOTE | 2025-06-26 13:45 | DI.RAD_ITS ---
Exam(s) XR HIP RT AP LAT ONLY EXAM: XR HIP RT AP LAT ONLY CLINICAL HISTORY: Right hip pain, M25.551. TECHNIQUE: 2D digital imaging was performed. Two views COMPARISON: No exams were available for comparison FINDINGS: BONES: No acute fracture is present. No bony destructive lesion is seen. JOINTS: There is a right hip prosthesis. There are no abnormal lucencies around the acetabular or femoral components. Hardware at the lumbosacral junction the partially visualized. The right SI joint and pubic symphysis are unremarkable. SOFT TISSUE: Normal. IMPRESSION: No acute abnormality. Remarkable right hip prosthesis. DATA REPOSITORY: RADIATION DOSE DELIVERED:
== END ==
LOC: DI 13:47
DX: M25.551 Pain in right hip (principal); Z96.641 Presence of right artificial hip joint
CPT/HCPCS: 73502